=== PATIENT | male | born 1935 | race Caucasian/White ===

== ENCOUNTER → 2020-03-20 08:55 | Outpatient (BNVA) | payer MEDICARE, SELFPAY | PROVIDERS: Family Provider Physician Assistant Medical; PCP Physician Assistant Medical; Visit Provider Urology | DX: N40.1 Benign prostatic hyperplasia with lower urinary tract symptoms (principal); N39.41 Urge incontinence; N32.3 Diverticulum of bladder | CPT/HCPCS: 81003 ==

== ENCOUNTER 2022-08-19 12:15 | Inpatient (IN) | payer MEDICARE, SELFPAY ==
[2022-08-19] VITALS (18 sets, daily range): BP systolic 98–159; BP diastolic 52–70; PULSE 68–115; RESP 16–23; TEMP 36.7–36.8; O2SAT 92–99
--- NOTE | 2022-08-19 12:23 | CT_ITS ---
WS: [id number] CT HEAD NONCONTRAST HISTORY: AMS TECHNIQUE: Contiguous axial imaging performed through the brain in 2.5 mm imaging. Bone and soft tiss ue windows. Sagittal and coronal reformats reviewed. All CT scans at [facility] use at least one of these dose optimization techniques: automated exposure control; mA and/or kV adjustment per pa tient size (includes targeted exams where dose is matched to clinical indication); or iterative recon struction. DLP: 1228.58 mGy.cm COMPARISON: None available. No acute intracranial hemorrhage, midline shift or mass effect. Moderate atrophy, symmetric with no midline shift. Small vessel ischemic disease. There is also moder ate cerebellar atrophy. Small lacunar infarcts in the external capsules. Ventricles: Normal size with no hydrocephalus. No inferior displacement of cerebellar tonsils. Paranasal sinuses: As visualized are clear. Mastoid air cells: Well pneumatized. Calvarium and scalp: Skull is intact with no soft tissue edema or swelling. CT/CT head wo con* [id number] IMPRESSION: 1. No acute intracranial hemorrhage or edema. 2. Moderate atrophy, cerebrum and cerebellum. 3. Mild small vessel ischemic disease.
--- NOTE | 2022-08-19 12:23 | ECG_ITS ---
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 Measurements Intervals Pillager Rate: 98 P: 17 NM: 145 QRS: -17 QRSD: 102 T: 37 QT: 396 QTc: 506 Interpretive Statements SINUS RHYTHM WITH OCCASIONAL SUPRAVENTRICULAR PREMATURE COMPLEXES POSSIBLE LEFT ATRIAL ENLARGEMENT [-0.1mV P-WAVE IN V1/V2] INFERIOR MYOCARDIAL INFARCTION , PROBABLY OLD [40+ ms Q WAVE AND/OR ST/T ABNORMALITY IN II/aVF] No previous ECG available for comparison Electronically Signed On 08-19-2022 16:31:31 CDT by Niranjan Reynaga M.D. [id number]
[2022-08-19] MEDS: sodium chloride 0.9% 1,000 ML 999 ML IV ×2 (12:45→14:02)
[2022-08-19 13:17] LABS: Basophils # 0.1 10^3/uL (0.0-0.1); Basophils % 0.4 %; Hematocrit 42.1 % (42.0-52.0); Hemoglobin 14.5 g/dL (11.7-16.6); Lymphocytes # 0.2 10^3/uL (0.8-4.8); Lymphocytes % 0.6 %; Mean Corpuscular HGB Conc 34.4 g/dL (30.0-36.0); Mean Corpuscular Hemoglobin 32.4 pg (28.0-34.0); Mean Platelet Volume 11.5 fL (7.4-10.4); Monocytes # 0.7 10^3/uL (0.2-0.9); Monocytes % 2.3 %; Neutrophils # 27.72 10^3/uL (1.8-7.7); Neutrophils % 95.8 %; Nucleated Red Blood Cells % 0 %; Platelet Count 234 10^3/cmm (130-400); Red Blood Count 4.48 10^6/uL (4.1-5.3); Red Cell Distribution Width 12.9 % (12.1-15.1); White Blood Count 28.9 10^3/uL (4.0-10.0)
--- NOTE | 2022-08-19 13:27 | PC.PHAR ---
pt is from [facility]-pts states the pt was just admitted to [facility] last night 08/18/22 states the pt had been in [facility] for a week-medications entered are from the pts mar
[2022-08-19 13:36] LABS: Alanine Aminotransferase 22 U/L (0-41); Albumin Level 3.8 g/dL (3.5-5.2); Alkaline Phosphatase 83 U/L (40-130); Anion Gap 18.2 (5-19); Aspartate Amino Transferase 13 U/L (0-40); Blood Urea Nitrogen 26 mg/dL (8-23); Carbon Dioxide 21 mmol/L (22-29); Chloride 99 mmol/L (98-107); Globulin 2.9 g/dL (1.3-4.6); Glucose 407 mg/dL (65-115); Magnesium 1.8 mg/dL (1.7-2.3); Osmolality Calculated 300 mOsm/kg (285-295); Potassium 4.2 mmol/L (3.5-5.1); Sodium 134 mmol/L (136-145); Total Bilirubin 0.8 mg/dL (0.15-1.2); Total Protein 6.7 g/dL (6.6-8.7)
[2022-08-19 13:40] LABS: Lactic Sepsis W/Reflex 4.4 mmol/L (0.5-2.2)
--- NOTE | 2022-08-19 13:44 | CT_ITS ---
WS: [id number] CT ABDOMEN AND PELVIS NONCONTRAST HISTORY: Abdominal pain, hematuria. TECHNIQUE: Imaging performed through the abdomen and pelvis. Coronal and sagittal reformats are submi tted. All CT scans at [facility] use at least one of these dose optimization techniques: auto mated exposure control; mA and/or kV adjustment per patient size (includes targeted exams where dose is matched to clinical indication); or iterative reconstruction. DLP: 783.97 mGy.cm COMPARISON: 01/31/2018 Lower thorax: Hyperexpanded lung bases. Mild reticular thickening no mass or pneumonia. Normal size h eart. No pericardial effusion. Liver: Normal size liver. No mass or bile duct dilatation. Gallbladder: Prior cholecystectomy. Pancreas: Mild atrophy. Spleen: Normal. Adrenal glands: Normal. No mass. Right kidney: New since the prior study from 2018 is moderate hydroureteronephrosis. The RIGHT ureter is dilated and tortuous to the level of the urinary bladder. No stone or obstructing calcification i dentified. The obstruction is distal near the insertion of the urinary bladder. Nonobstructing calcif ications. Left kidney: Mild hydroureteronephrosis. LEFT ureter is dilated throughout its course to the urinary bladder. New since the prior study. Aorta: Mild atherosclerosis abdominal aorta with no aneurysm. No free fluid, intraperitoneal air or significant lymphadenopathy. GI tract: Stomach is moderately distended with fluid and air. No small bowel obstruction. Sigmoid div erticular disease. No GI tract obstruction. Abdominal wall: Negative. No hernia. Pelvis: Urinary bladder is markedly distended. Bladder extends over length of 16.5 cm. There is air i n the urinary bladder which may be due to a cystitis or air from the Tang catheter placement. Bilate ral bladder diverticula. Prostate gland is enlarged. Tang catheter has been placed. Abnormal positio herlinda of the Tang catheter with the Tang catheter balloon distended at the junction between the peni le and prostatic urethra. Tang catheter needs to be readjusted. Osseous structures: Moderate spondylitic change in the spine. CT/CT abdomen pelvis wo con [id number] IMPRESSION: 1. Bilateral significant hydroureteronephrosis, RIGHT greater than LEFT. No ob structing ureteral calcifications. Favor the hydronephrosis and hydroureter is secondary to an overly distended urinary bladder. Recommend repositioning of th e Tang catheter to decompress the bladder. 2. Abnormal positioning of the Tang catheter. The Tang catheter balloon is d istended at the junction of the penile and prostatic urethra. Please deflate th e Tang balloon and reposition into the urinary bladder for decompression. 3. Bladder diverticula and diffuse bladder wall thickening. Probably due to lo ng-standing outlet obstruction. There is air in the urinary bladder which may b e due to cystitis or the attempted Tang catheter placement. 4. Prostate gland enlargement. 5. Prior cholecystectomy.
--- NOTE | 2022-08-19 13:44 | W.ED.GENADLT ---
HPI - General Adult General: Chief complaint: General Medical Stated complaint: BLOOD SUGAR/ELEV HEART RATE Time Seen by Provider: 08/19/22 12:21 Source: patient Mode of arrival: ambulatory History of Present Illness: 87-year-old male presents emergency room via EMS he was discharged from [facility] in [place] to shelter yesterday. We did get his old records his white count at discharge was 6.5 and he was relatively stable from reading through his discharge summary. Later his did arrive in the emergency room and she confirmed his that he did seem to be doing well when she came and seen him today he was doing very poorly staff recognized that he was having significant difficulty he was poorly responsive and had deteriorated rapidly overnight and he was brought in by ambulance on arrival here he is tachycardic he is awake and able to answer some questions initially his blood pressure was stable. Relieving factors: none Exacerbating factors: none Associated symptoms: Reports nausea; Deny chest pain, confusion, cough, diaphoresis, decreased appetite, dyspnea, fevers/chills, headache(s), malaise, rash, palpitations, seizures, short of breath, syncope, vomiting or weakness Review of Systems Const: Reports: fever(s) and chills; Denies: malaise or diaphoresis ENMT: Denies: throat pain, ear or mastoid pain, nasal discharge or nasal congestion Card: Denies: chest pain, palpitations or syncope Resp: Denies: dyspnea GI: Reports: abdominal pain and nausea; Denies: vomiting : Reports: hematuria; Denies: flank pain, dysuria, urinary frequency or urinary urgency Skin/Breast: Denies: rash or pruritus Neuro: Denies: headache(s) or confusion PFSH ED PFSH: Medical History 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 CAD (coronary artery disease) Dementia Hx of hydronephrosis Surgical History Hx of appendectomy Hx of cholecystectomy Hx of heart artery stent Hx of tonsillectomy Family History Father , AT AGE 88 COMPLICATIONS OF CVA Otlvzq-oz-etwhkofgm syndrome Mother , AT 92 LUNG CANCER Cancer Brother Diabetes Social History Smoking and tobacco status: former smoker Alcohol intake: unknown Adopted: No Caregiver/support person: No Lives independently: No Household members: spouse Marital status: Current occupational status: retired Physical Exam HENMT: COMMON NORMALS: normocephalic, atraumatic, external ears normal, Normal nasal mucous membranes and turbinates present, moist oral mucous membranes and oropharynx normal HEAD & SCALP: normocephalic and atraumatic NOSE: Normal nasal mucous membranes and turbinates present EXTERNAL EAR: Yes external ears normal Eye: COMMON NORMALS: Equal, round and reactive pupils present, EOMs intact bilaterally, conjunctivae normal and no scleral icterus CONJUNCTIVA: Yes conjunctivae normal PUPIL: Yes Equal, round and reactive pupils present Neck/C-Spine: COMMON NORMALS: full ROM, no lymphadenopathy, supple and no JVD Lymph: LYMPHATIC: no lymphadenopathy noted and no lymphedema noted Resp: COMMON NORMALS: normal respiratory effort, No retractions, No use of accessory muscles and clear to auscultation bilaterally AUSCULTATION: clear to auscultation bilaterally Cardio: COMMON NORMALS: no JVD, regular rate, regular rhythm and No murmurs present (Cardio) RATE: regular rate RHYTHM: regular rhythm GI: COMMON NORMALS: No hepatosplenomegaly present AUSCULTATION: Yes normoactive bowel sounds PALPATION: Yes Tenderness to palpation present (GI) (Suprapubic), No Guarding due to palpation present (GI) and Yes No hepatosplenomegaly present : COMMON NORMALS: Yes no CVA tenderness BLADDER/KIDNEY EXAM: Yes no CVA tenderness Back/Pelvis: COMMON NORMALS: no CVA tenderness Extremity: COMMON NORMALS: normal to inspection, capillary refill normal, no clubbing, cyanosis or edema, no calf tenderness and no pedal edema Skin: COMMON NORMALS: no rashes or lesions noted GENERAL SKIN EXAM: no rashes or lesions noted Course Vital Signs: Vital signs: Vital Signs Temperature 98.5 F 08/20/22 04:00 Pulse Rate 81 08/20/22 06:07 Respiratory Rate 21 H 08/20/22 04:00 Blood Pressure 96/54 08/20/22 04:00 Pulse Oximetry 96 08/20/22 06:07 Oxygen Delivery Me thod 08/20/22 06:07 Oxygen Flow Rate 3 08/20/22 06:07 MDM - General Adult Medical Decision Making Patient meets the criteria for severe sepsis based on his vital signs and laboratory studies he was started on meropenem due to his recent hospitalization and Tang catheter is in place. Is given a fluid bolus and lactate series ordered. He has no signs of pneumonia or soft tissue infection cultures were also done prior to antibiotics. Reviewed previous hospitalization records we were able to get the culture however this did not show any resistant bacteria. I still think meropenem is the best option for him at this point given his recent hospitalization and antibiotics. Blood pressures been stable tachycardia improved after fluid bolus. Patient will be admitted to the ICU. Initial review of the CT and noted that the Tang catheter was lodged in the prostate and the bladder was significantly distended. Nursing advanced the Tang and there is over 1200 out from the bladder very shortly after the catheter being repositioned properly. Radiology confirmed wet read. Medical Records I reviewed the patient's medical records. Lab Data I reviewed the patient's lab results. 08/19/22 13:00 08/19/22 13:[address] 08/19/22 12:23 IMPRESSION: 1. No acute intracranial hemorrhage or edema. 2. Moderate atrophy, cerebrum and cerebellum. 3. Mild small vessel ischemic disease. Abdomen/Pelvis CT 08/19/22 13:44 IMPRESSION: 1. Bilateral significant hydroureteronephrosis, RIGHT greater than LEFT. No obstructing ureteral calcifications. Favor the hydronephrosis and hydroureter is secondary to an overly distended urinary bladder. Recommend repositioning of the Tang catheter to decompress the bladder. 2. Abnormal positioning of the Tang catheter. The Tang catheter balloon is distended at the junction of the penile and prostatic urethra. Please deflate the Tang balloon and reposition into the urinary bladder for decompression. 3. Bladder diverticula and diffuse bladder wall thickening. Probably due to long-standing outlet obstruction. There is air in the urinary bladder which may be due to cystitis or the attempted Tang catheter placement. 4. Prostate gland enlargement. 5. Prior cholecystectomy. Chest X-Ray 08/19/22 18:49 IMPRESSION: No acute findings Laboratory Results WBC 28.9 10^3/uL (4.0-10.0) H 08/19/22 13:00 RBC 4.48 10^6/uL (4.1-5.3) 08/19/22 13:00 Hgb 14.5 g/dL (11.7-16.6) 08/19/22 13:00 Hct 42.1 % (42.0-52.0) 08/19/22 13:00 MCV 94.0 fl (80-94) 08/19/22 13:00 MCH 32.4 pg (28.0-34.0) 08/19/22 13:00 MCHC 34.4 g/dL (30.0-36.0) 08/19/22 13:00 RDW 12.9 % (12.1-15.1) 08/19/22 13:00 Plt Count 234 10^3/cmm (130-400) 08/19/22 13:00 MPV 11.5 fL (7.4-10.4) H 08/19/22 13:00 Neut % (Auto) 95.8 % 08/19/22 13:00 Lymph % (Auto) 0.6 % 08/19/22 13:00 Evans % (Auto) 2.3 % 08/19/22 13:00 Eos % (Auto) 0.0 % 08/19/22 13:00 Baso % (Auto) 0.4 % 08/19/22 13:00 Neut # (Auto) 27.72 10^3/uL (1.8-7.7) H 08/19/22 13:00 Lymph # (Auto) 0.2 10^3/uL (0.8-4.8) L 08/19/22 13:00 Evans # (Auto) 0.7 10^3/uL (0.2-0.9) 08/19/22 13:00 Eos # (Auto) 0.0 10^3/uL (0.0-0.8) 08/19/22 13:00 Baso # (Auto) 0.1 10^3/uL (0.0-0.1) 08/19/22 13:00 Nucleated RBC % (auto) 0 % 08/19/22 13:00 Nucleated RBCs # 0.0 /100WBC 08/19/22 13:00 Sodium 134 mmol/L (136-145) L 08/19/22 13:00 Potassium 4.2 mmol/L (3.5-5.1) 08/19/22 13:00 Chloride 99 mmol/L (98-107) 08/19/22 13:00 Carbon Dioxide 21 mmol/L (22-29) L 08/19/22 13:00 Anion Gap 18.2 (5-19) 08/19/22 13:00 BUN 26 mg/dL (8-23) H 08/19/22 13:00 Creatinine 1.2 mg/dL (0.7-1.2) 08/19/22 13:00 GFR Calculation Not Reportable 08/19/22 13:00 Glucose 407 mg/dL (65-115) H 08/19/22 13:00 Calculated Osmolality 300 mOsm/kg (285-295) H 08/19/22 13:00 Lactic Acid 4.4 mmol/L (0.5-2.2) H* 08/19/22 13:00 Lactic Acid (Sepsis) 2.9 mmol/L (0.5-2.2) H 08/19/22 16:15 Calcium 9.0 mg/dL (8.5-10.5) 08/19/22 13:00 Magnesium 1.8 mg/dL (1.7-2.3) 08/19/22 13:00 Total Bilirubin 0.8 mg/dL (0.15-1.2) 08/19/22 13:00 AST 13 U/L (0-40) 08/19/22 13:00 ALT 22 U/L (0-41) 08/19/22 13:00 Alkaline Phosphatase 83 U/L (40-130) 08/19/22 13:00 Total Protein 6.7 g/dL (6.6-8.7) 08/19/22 13:00 Albumin 3.8 g/dL (3.5-5.2) 08/19/22 13:00 Globulin 2.9 g/dL (1.3-4.6) 08/19/22 13:00 TSH 3.11 uIU/mL (0.27-4.20) 08/19/22 13:00 Urine Color Red (Yellow) 08/19/22 13:18 Urine Appearance Cloudy (CLEAR) A 08/19/22 13:18 Urine pH 5 (5-7) 08/19/22 13:18 Ur Specific Mead 1.015 (1.005-1.030) 08/19/22 13:18 Urine Protein 2+ (Negative) H 08/19/22 13:18 Urine Glucose (UA) 4+ (Normal) H 08/19/22 13:18 Urine Ketones Negative (Negative) 08/19/22 13:18 Urine Blood 3+ (Negative) H 08/19/22 13:18 Urine Nitrate Not Reportable 08/19/22 13:18 Urine Bilirubin Not Reportable 08/19/22 13:18 Urine Urobilinogen Not Reportable 08/19/22 13:18 Ur Leukocyte Esterase 2+ (Negative) H 08/19/22 13:18 Urine RBC >100 /hpf (0-2) H 08/19/22 13:18 Urine WBC 10-15 /hpf (0-5) H 08/19/22 13:18 Ur Squamous Epith Cells Rare /hpf (0-5) 08/19/22 13:18 Amorphous Sediment Not Reportable 08/19/22 13:18 Urine Bacteria 1+ /hpf (NONE) H 08/19/22 13:18 Serum Ketones Negative (Negative) 08/19/22 12:26 Discharge Plan Discharge Patient Disposition: Admitted As Inpatient Admit Provider: Leslie Matias Clinical Impression: Sepsis, UTI (urinary tract infection), Urinary obstruction, Lethargy, Bladder diverticulum Condition: Stable Coding Level of Care Code 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
[2022-08-19 13:56] LABS: Add Urine Microscopic? YES; Blood Urine 3+ (Negative); Glucose Urine UA 4+ (Normal); Ketones Urine Negative (Negative); Leukocyte Esterase Urine 2+ (Negative); Protein Urine 2+ (Negative); Specific Gravity, Urine 1.015 (1.005-1.030); Urine Appearance Cloudy (CLEAR); Urine Color Red (Yellow); pH Urine 5 (5-7)
[2022-08-19 13:59] LABS: Add Urine Culture? Yes; Bacteria Urine 1+ /hpf; RBC Urine >100 /hpf (0-2); Squamous Epithelial Cell Urine RARE /hpf (0-5)
[2022-08-19] MEDS: meropenem 1,000 MG in sodium chloride 0.9% (plus) 50 ML 100 MG IV ×2 (14:01→21:55)
[2022-08-19 14:07] LABS: Ketone (Acetest) Serum Negative (Negative)
[2022-08-19 14:56] LABS: Reflex Lactate Order REFLEX LACTIC ORDERD
[2022-08-19 16:52] LABS: Lactic Acid level (Lactate) 2.9 mmol/L (0.5-2.2)
[2022-08-19] MEDS: sodium chloride 0.9% 1,000 ML 100 ML IV (17:16)
--- NOTE | 2022-08-19 17:24 | PM.HP ---
Providers/Chief Complaint Admitting Physician: Leslie Matias MD Primary Care Provider: Roberto Carlos Albarran Chief Complaint: BLOOD SUGAR/ELEV HEART RATE History of Present Illness Eris Nahed is a 87 year old male with a past medical history of diabetes mellitus, hypertension, who was recently admitted at [facility] for urinary tract infection. I am uncertain as to what antibiotic he received or what the culture results showed at this time. Per his symptoms at that time had been increasing lethargy to the point that patient had taken a fall at home. He is intermittently confused. His is at bedside and states that patient sleeps a lot at home . He was discharged to [facility] just last night. Today at the assisted patient was found on the floor, not known if he passed out versus took a mechanical fall. He was sent back into the emergency room. CT of his head was performed which did not show any signs of intracranial hemorrhage or edema. Mild small vessel ischemic changes were seen. His Tang catheter was not draining any urine. CT abdomen showed bilateral significant hydroureteronephrosis right greater than left without any obstructing calcifications. Hydronephrosis and hydroureter were likely related to a distended urinary bladder. Tip of the Tang catheter was noted to be distended in the junction of penile and prostatic urethra. It was repositioned in the emergency room and is draining well now. Prostate gland enlargement was seen.. Notable lab abnormalities today are leukocytosis of 24,000, lactate of 4.4, positive UA and hyperglycemia. At this time patient is lethargic, however able to open his eyes and wake up to calling name. Correctly tells me his name, date of and that is the lady at the bedside is his . Correctly identifies her name. Review of Systems General: Reports: ROS unobtainable due to medical condition Medications/Allergies Home Medications Medication Instructions Recorded Confirmed Last Taken Type L.acidophil-L.casei-B.bifid-B.longum-FOS 1 cap PO DAILY while on antibiotics 08/19/22 08/19/22 Unknown History 2 billion cell-50 mg capsule (Probiotic Blend) aspirin 81 mg tablet,delayed 81 mg PO DAILY 08/19/22 08/19/22 Unknown History release bisacodyl 10 mg rectal suppository 10 mg MT DAILY PRN Constipation 08/19/22 08/19/22 Unknown History (Dulcolax (bisacodyl)) citalopram 10 mg tablet (Celexa) 10 mg PO DAILY 08/19/22 08/19/22 Unknown History diclofenac sodium 75 mg 75 mg PO BID 08/19/22 08/19/22 Unknown History tablet,delayed release famotidine 20 mg tablet 20 mg PO BID 08/19/22 08/19/22 Unknown History glipizide 10 mg tablet, extended 10 mg PO DAILY 08/19/22 08/19/22 Unknown History release 24 hr lisinopril 10 mg tablet 10 mg PO DAILY 08/19/22 08/19/22 Unknown History magnesium hydroxide 400 mg/5 mL 30 ml PO DAILY PRN Constipation 08/19/22 08/19/22 Unknown History oral suspension (Milk of Magnesia) metformin 750 mg tablet,extended 1,500 mg PO QAM 08/19/22 08/19/22 Unknown History release 24 hr ondansetron HCl 4 mg tablet 4 mg PO Q4H PRN Nausea 08/19/22 08/19/22 Unknown History sodium phosphates 19 gram-7 118 ml MT DAILY PRN Constipation 08/19/22 08/19/22 Unknown History gram/118 mL enema (Fleet Enema) tamsulosin 0.4 mg capsule 0.4 mg PO DAILY 08/19/22 08/19/22 Unknown History Allergies Allergy/AdvReac Type Severity Reaction Status Date / Time donepezil [From Aricept] Allergy Unknown Unknown Verified 08/19/22 13:22 triamcinolone Allergy Unknown Unknown Verified 08/19/22 13:22 simvastatin AdvReac Unknown ADR-Cramping Verified 08/19/22 13:22 of the Muscles PFSH Acute PFSH: Medical History 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 CAD (coronary artery disease) Dementia Hx of hydronephrosis Surgical History Hx of appendectomy Hx of cholecystectomy Hx of heart artery stent Hx of tonsillectomy Family History Father , AT AGE 88 COMPLICATIONS OF CVA Oquaet-ui-nmnqhhnwh syndrome Mother , AT 92 LUNG CANCER Cancer Brother Diabetes Social History Smoking and tobacco status: former smoker Alcohol intake: unknown Adopted: No Caregiver/support person: No Lives independently: No Household members: spouse Marital status: Current occupational status: retired Vitals/I&O/Wt Last Vital Signs Temp 98.1 F 08/19/22 12:22 Pulse 106 H 08/19/22 16:58 Resp 18 08/19/22 16:58 BP 130/56 08/19/22 16:58 Pulse Ox 94 08/19/22 16:58 O2 Del Method 08/19/22 12:22 O2 Flow Rate 3 08/19/22 12:47 08/19/22 08/19/22 08/19/22 06:59 14:59 22:59 Intake Total 1000 / 1000 Balance 1000 / 1000 Weight last 48 hrs Weight 86.183 kg Physical Exam Narrative: General: No acute distress, AO x3 HEENT: PERRLA, pupils bilaterally equal and reactive, pallors not present Chest: Normal vesicular breath sounds, no added sounds, equal good air entry bilaterally CVS: S1-S2 regular, no murmurs, no tachycardia, no gallops, no rubs Abdomen: Soft, nontender, no organomegaly, bowel sounds present Neuro: No focal deficits, no facial deformity, AO x3, power 5/5 in all limbs Data 08/19/22 13:00 08/19/22 13:00 Micro: Microbiology 08/19/22 12:55 Blood Culture - Preliminary Blood SPECIMEN COLLECTED 08/19/22 13:00 Blood Culture - Preliminary Blood SPECIMEN COLLECTED A&P Assessment and plan (1) Sepsis: (2) UTI (urinary tract infection): (3) Urinary obstruction: (4) Lethargy: Plan 87-year-old male recently discharged from [facility] after being treated for acute cystitis, presented to the emergency room today sent from the assisted after being found down on the floor. He is known to have a bladder diverticulum and BPH. He had a Tang in place which was displaced. CT of the abdomen and pelvis showed that this Tang was misplaced, it has been repositioned in the emergency room and is draining urine now. No overt bleeding noted. Patient meets sepsis criteria by way of elevated white blood cell count, elevated lactate, tachycardia and source of infection by way of a UTI. Urine culture blood cultures have been taken prior to starting antibiotics. Empirically placed on meropenem 1 g IV every 8 hours while awaiting culture data. Sepsis bolus given in the emergency room, to continue fluids at 100 mm/h. Patient is currently lethargic, which is not his baseline per his at bedside. He is able to wake up and answer all orientation questions appropriately, however unable to hold a conversation. Lethargy may be attributable to sepsis. Treat with IV fluids IV antibiotics await cultures and monitor closely. Hold lisinopril for now. Blood sugar noted to be grossly elevated more than 400. Serum ketones are negative. We will start patient on high-dose insulin sliding scale. At home he typically takes glipizide. Anion gap currently at 18.2. Denies any current chest pain dyspnea or palpitations. We will obtain chest x-ray to evaluate for any underlying pneumonia. Patient requiring 3 L/min supplemental O2. CT of his head is without any intracranial acute events. White matter changes were noted. Attestations Medical Necessity Statement*: Greater than 2 midnight admission is anticipated for management of sepsis, IV fluids, IV antibiotics, management of hyperglycemia. Coding Level of Care Code Acute Code for [facility] Diagnoses Sepsis A41.9 UTI (urinary tract infection) N39.0 Urinary obstruction N13.9 Lethargy R53.83
[2022-08-19 18:44] LABS: Glucose Point of Care 431 mg/dL (70-110)
--- NOTE | 2022-08-19 18:49 | XRR_ITS ---
PROCEDURE INFORMATION: Exam: XR Chest Exam date and time: 08/19/2022 5:59 PM Age: 87 years old Clinical indication: Other: Pneumonia; Additional info: Evalaute for pneumonia TECHNIQUE: Imaging protocol: Radiologic exam of the chest. Views: 1 view. COMPARISON: CT abdomen pelvis con [id number] 08/19/2022 2:24 PM FINDINGS: Lungs: There is some chronic peripheral fibrosis or atelectasis in both lungs. No acute infiltration or effusion. Pleural spaces: Unremarkable. No pleural effusion. No pneumothorax. Heart/Mediastinum: Unremarkable. No cardiomegaly. Bones/joints: Unremarkable. XR/XR chest 1V portable [id number] IMPRESSION: No acute findings
[2022-08-19 19:25] LABS: Thyroid Stimulating Hormone 3.11 uIU/mL (0.27-4.20)
[2022-08-19 20:23] LABS: Glucose Point of Care 368 mg/dL (70-110)
[2022-08-19] MEDS: enoxaparin 40 mg/0.4 mL Syringe SUBCUT (20:28)
[2022-08-19] MEDS: insulin lispro 100 unit/1 mL SUBCUT (20:29)
[2022-08-19 23:47] LABS: Adenovirus Not Detected (NOT DETECT); Chlamydia Pneumoniae Not Detected (NOT DETECT); Coronavirus 229E,HKU1,NL63,OC4 Not Detected (NOT DETECT); Human Metapneumovirus Not Detected (NOT DETECT); Human Rhinovirus/Enterovirus Not Detected (NOT DETECT); Influenza A Not Detected (NOT DETECT); Influenza A H1 Not Detected (NOT DETECT); Influenza A H1-2009 Not Detected (NOT DETECT); Influenza A H3 Not Detected (NOT DETECT); Influenza B Not Detected (NOT DETECT); Mycoplasma Pneumoniae Not Detected (NOT DETECT); Parainfluenza Virus Type 1 Not Detected (NOT DETECT); Parainfluenza Virus Type 2 Not Detected (NOT DETECT); Parainfluenza Virus Type 3 Not Detected (NOT DETECT); Parainfluenza Virus Type 4 Not Detected (NOT DETECT); Respiratory Syncytial Virus A Not Detected (NOT DETECT); Respiratory Syncytial Virus B Not Detected (NOT DETECT); SARS-COV-2 Not Detected (NOT DETECT)
[2022-08-20] VITALS (28 sets, daily range): BP systolic 96–136; BP diastolic 49–71; PULSE 63–81; RESP 18–25; TEMP 36.2–36.9; O2SAT 87–100
[2022-08-20] MEDS: sodium chloride 0.9% 1,000 ML 100 ML IV ×3 (03:18→23:06)
[2022-08-20 04:23] LABS: Basophils # 0.1 10^3/uL (0.0-0.1); Basophils % 0.4 %; Eosinophils % 0.1 %; Hematocrit 34.9 % (42.0-52.0); Hemoglobin 11.8 g/dL (11.7-16.6); Lymphocytes # 1.7 10^3/uL (0.8-4.8); Lymphocytes % 6.2 %; Mean Corpuscular HGB Conc 33.8 g/dL (30.0-36.0); Mean Corpuscular Hemoglobin 32.3 pg (28.0-34.0); Mean Corpuscular Volume 95.6 fl (80-94); Mean Platelet Volume 11.4 fL (7.4-10.4); Monocytes # 1.2 10^3/uL (0.2-0.9); Monocytes % 4.5 %; Neutrophils # 23.73 10^3/uL (1.8-7.7); Nucleated Red Blood Cells % 0 %; Platelet Count 209 10^3/cmm (130-400); Red Blood Count 3.65 10^6/uL (4.1-5.3); Red Cell Distribution Width 13.2 % (12.1-15.1); White Blood Count 26.9 10^3/uL (4.0-10.0)
[2022-08-20 04:41] LABS: Lactic Sepsis W/Reflex 1.6 mmol/L (0.5-2.2)
[2022-08-20 04:49] LABS: Alanine Aminotransferase 17 U/L (0-41); Albumin Level 3.1 g/dL (3.5-5.2); Alkaline Phosphatase 62 U/L (40-130); Anion Gap 12.3 (5-19); Aspartate Amino Transferase 10 U/L (0-40); Blood Urea Nitrogen 23 mg/dL (8-23); Calcium 8.3 mg/dL (8.5-10.5); Carbon Dioxide 26 mmol/L (22-29); Chloride 105 mmol/L (98-107); Globulin 2.3 g/dL (1.3-4.6); Glucose 157 mg/dL (65-115); Magnesium 1.9 mg/dL (1.7-2.3); NT Pro B Type Natriuretic Pept 895 pg/mL (0-450); Osmolality Calculated 295 mOsm/kg (285-295); Potassium 4.3 mmol/L (3.5-5.1); Sodium 139 mmol/L (136-145); Total Bilirubin 0.8 mg/dL (0.15-1.2); Total Protein 5.4 g/dL (6.6-8.7)
[2022-08-20] MEDS: meropenem 1,000 MG in sodium chloride 0.9% (plus) 50 ML 100 MG IV ×3 (05:04→22:33)
[2022-08-20 07:09] LABS: Glucose Point of Care 175 mg/dL (70-110)
[2022-08-20] MEDS: citalopram 20 mg Tablet 10 MG PO (08:31)
[2022-08-20] MEDS: insulin lispro 100 unit/1 mL SUBCUT ×3 (08:31→20:36)
[2022-08-20] MEDS: pantoprazole DR 40 mg Tablet PO (08:31)
[2022-08-20] MEDS: tamsulosin 0.4 mg Capsule PO (08:31)
[2022-08-20] MEDS: aspirin 81 mg EC Tablet PO (08:31)
[2022-08-20 11:35] LABS: Glucose Point of Care 206 mg/dL (70-110)
--- NOTE | 2022-08-20 16:14 | PM.PN ---
Subjective Subjective: Remains somewhat disoriented to place and time this morning. States that he has not in any pain. Says that he is thirsty, he has been drinking some. Nursing denies any concerns at this time. Reports that his pressures have been stable overnight. Vitals/I&O/Wt Last Vital Signs Temp 97.1 F L 08/20/22 12:00 Pulse 64 08/20/22 14:44 Resp 19 H 08/20/22 12:00 BP 136/66 08/20/22 12:00 Pulse Ox 98 08/20/22 12:00 O2 Del Method 08/20/22 12:00 O2 Flow Rate 3 08/20/22 12:00 08/20/22 08/20/22 08/20/22 06:59 14:59 22:59 Intake Total 1160 / 3260 1795 / 1795 Output Total 375 / 1675 Balance 785 / 1585 1795 / 1795 Weight last 48 hrs Weight 190 lb Physical Exam Narrative: General: Cooperative patient in no apparent distress. Well developed. Alert and oriented to person. HEENT: Normocephalic, Atraumatic. External ears normal. Nasal passages patent without drainage. MMM. Heart: RRR. Resp: LCTA. No respiratory distress, no use of accessory muscles. Abd: Soft, non-tender. Non-distended. Extremities: No edema. Skin: No rash or lesions on exposed areas. Data 08/20/22 03:03 08/20/22 03:03 Micro: Microbiology 08/19/22 12:55 Blood Culture - Preliminary Blood NEGATIVE TO DATE 08/19/22 13:00 Blood Culture - Preliminary Blood NEGATIVE TO DATE A&P Assessment and plan (1) Sepsis: (2) UTI (urinary tract infection): (3) Urinary obstruction: (4) Lethargy: Plan 87-year-old male recently discharged from [facility], admitted for sepsis with UTI source. Continue close ICU monitoring. Vitals are stable at this time. Pressures have been much improved overnight and this morning. Blood and urine cultures are pending. Blood cultures currently negative to date. Currently receiving meropenem and will continue. Plan to de-escalate antibiotics once cultures are available. Continue normal saline. Sodium has improved to normal range. Lactate has trended down to 1.6 from 4.4. Urine output has been good over the last 24 hours. He does have a Tang in place. No overt bleeding noted. Blood sugar noted to be grossly elevated more than 400. Serum ketones are negative. We will start patient on high-dose insulin sliding scale. At home he typically takes glipizide. Anion gap currently at 18.2. Chest x-ray was performed and no acute concerns were noted. CT of his head is without any intracranial acute events. White matter changes were noted. Continue Protonix for GI prophylaxis. Continue sliding scale insulin for diabetes. Code Status: AND IVF: NS@ 100ml/hr DVT PPx: Lovenox GI PPx: Protonix ABx: Meropenem Diet: CC Discharge plan: SNF Attestations Medical Necessity Statement*: Continue inpatient care for IV meropenem, blood cultures, urine cultures, management of sepsis. Diagnoses Sepsis A41.9 UTI (urinary tract infection) N39.0 Urinary obstruction N13.9 Lethargy R53.83
[2022-08-20 17:39] LABS: Glucose Point of Care 120 mg/dL (70-110)
[2022-08-20] MEDS: enoxaparin 40 mg/0.4 mL Syringe SUBCUT (17:54)
--- NOTE | 2022-08-20 18:47 | PC.NURSE ---
Uneventful shift, patient remains pleasantly confused, 3L NC, stable vitals. See charted vitals. Patient updated at bedside by Dr. Martínez. Patient denies pain throughout shift and at this time. Patient resting comfortably, watching TV.
[2022-08-20 20:30] LABS: Glucose Point of Care 205 mg/dL (70-110)
[2022-08-21] VITALS (12 sets, daily range): BP systolic 117–139; BP diastolic 58–71; PULSE 52–87; RESP 12–25; TEMP 36.6–36.8; O2SAT 92–100
[2022-08-21 03:59] LABS: Basophils % 0.3 %; Eosinophils # 0.1 10^3/uL (0.0-0.8); Eosinophils % 0.9 %; Hematocrit 34.2 % (42.0-52.0); Hemoglobin 11.4 g/dL (11.7-16.6); Lymphocytes % 13.3 %; Mean Corpuscular HGB Conc 33.3 g/dL (30.0-36.0); Mean Corpuscular Hemoglobin 32.8 pg (28.0-34.0); Mean Corpuscular Volume 98.3 fl (80-94); Mean Platelet Volume 11.3 fL (7.4-10.4); Monocytes # 0.7 10^3/uL (0.2-0.9); Monocytes % 4.4 %; Neutrophils # 11.99 10^3/uL (1.8-7.7); Neutrophils % 80.4 %; Nucleated Red Blood Cells % 0 %; Platelet Count 199 10^3/cmm (130-400); Red Blood Count 3.48 10^6/uL (4.1-5.3); Red Cell Distribution Width 13.2 % (12.1-15.1); White Blood Count 14.9 10^3/uL (4.0-10.0)
[2022-08-21 04:23] LABS: Alanine Aminotransferase 14 U/L (0-41); Alkaline Phosphatase 52 U/L (40-130); Anion Gap 9.9 (5-19); Aspartate Amino Transferase 10 U/L (0-40); Blood Urea Nitrogen 14 mg/dL (8-23); Calcium 8.2 mg/dL (8.5-10.5); Carbon Dioxide 27 mmol/L (22-29); Chloride 104 mmol/L (98-107); Globulin 2.3 g/dL (1.3-4.6); Glucose 95 mg/dL (65-115); Osmolality Calculated 284 mOsm/kg (285-295); Potassium 3.9 mmol/L (3.5-5.1); Sodium 137 mmol/L (136-145); Total Bilirubin 0.4 mg/dL (0.15-1.2); Total Protein 5.3 g/dL (6.6-8.7)
[2022-08-21] MEDS: meropenem 1,000 MG in sodium chloride 0.9% (plus) 50 ML 100 MG IV ×2 (05:49→16:23)
[2022-08-21 08:49] LABS: Glucose Point of Care 140 mg/dL (70-110)
[2022-08-21] MEDS: aspirin 81 mg EC Tablet PO (08:51)
[2022-08-21] MEDS: citalopram 20 mg Tablet 10 MG PO (08:51)
[2022-08-21] MEDS: tamsulosin 0.4 mg Capsule PO (08:51)
[2022-08-21] MEDS: pantoprazole DR 40 mg Tablet PO (08:51)
[2022-08-21] MEDS: sodium chloride 0.9% 1,000 ML 100 ML IV (08:52)
[2022-08-21 12:26] LABS: Glucose Point of Care 183 mg/dL (70-110)
[2022-08-21] MEDS: insulin lispro 100 unit/1 mL SUBCUT ×3 (12:58→21:30)
--- NOTE | 2022-08-21 14:22 | P.PN_ITS ---
Subjective Subjective: Denies any pain or problems morning. He is sitting up eating. He still remains oriented only to person. His did endorse he has had some longstanding dementia. Vitals/I&O/Wt Last Vital Signs Temp 98.2 F 08/21/22 10:00 Pulse 73 08/21/22 12:00 Resp 14 08/21/22 12:00 BP 133/69 08/21/22 12:00 Pulse Ox 98 08/21/22 12:00 O2 Del Method 08/21/22 12:00 O2 Flow Rate 3 08/21/22 06:00 08/20/22 08/21/22 08/21/22 22:59 06:59 14:59 Intake Total 1444 / 3239 350 / 3589 1576.667 / 1576.667 Output Total 1125 / 1125 550 / 1675 1750 / 1750 Balance 319 / 2114 -200 / 1914 -173.333 / -173.333 Physical Exam Narrative: General: Cooperative patient in no apparent distress. Well developed. Alert and oriented to person. HEENT: Normocephalic, Atraumatic. External ears normal. Nasal passages patent without drainage. MMM. Heart: RRR. Resp: LCTA. No respiratory distress, no use of accessory muscles. Abd: Soft, non-tender. Non-distended. Extremities: No edema. Skin: No rash or lesions on exposed areas. Data 08/21/22 03:32 08/21/22 03:32 Micro: Microbiology 08/19/22 13:18 Urine Culture - Preliminary Urine,Clean Catch Streptococcus species 08/19/22 12:55 Blood Culture - Preliminary Blood NEGATIVE TO DATE 08/19/22 13:00 Blood Culture - Preliminary Blood NEGATIVE TO DATE A&P Assessment and plan (1) Sepsis: (2) UTI (urinary tract infection): (3) Urinary obstruction: (4) Lethargy: Plan 87-year-old male recently discharged from [facility], admitted for sepsis with UTI source. Continue inpatient monitoring. Transfer to floor today. Vitals are stable at this time. Pressures have been much improved overnight and this morning. Blood and urine cultures are pending. Blood cultures positive for Streptococcus species. Currently receiving meropenem and will continue. Plan to de-escalate antibiotics once ID and sensitivities are available. Continue normal saline. WBC is down to 14.9. Urine output has been good over the last 24 hours. Blood sugar noted to be grossly elevated more than 400. Serum ketones are negative. We will start patient on high-dose insulin sliding scale. At home he typically takes glipizide. Anion gap currently at 18.2. Chest x-ray was performed and no acute concerns were noted. CT of his head is without any intracranial acute events. White matter changes were noted. Continue Protonix for GI prophylaxis. Continue sliding scale insulin for diabetes. Code Status: AND IVF: NS@ 100ml/hr DVT PPx: Lovenox GI PPx: Protonix ABx: Meropenem Diet: CC Discharge plan: SNF Attestations Medical Necessity Statement*: Continue inpatient care for IV meropenem, blood cultures, urine cultures, management of sepsis. Coding Level of Care Code Acute Code for [facility] Fwd Moderate MDM includes number and complexity of problems actively addressed during encounter, amount and/or complexity of data reviewed/ordered and described risk of complication, morbidity or mortality of management as documented Diagnoses Sepsis A41.9 UTI (urinary tract infection) N39.0 Urinary obstruction N13.9 Lethargy R53.83
[2022-08-21 16:44] LABS: Glucose Point of Care 172 mg/dL (70-110)
[2022-08-21 20:43] LABS: Glucose Point of Care 141 mg/dL (70-110)
[2022-08-21] MEDS: enoxaparin 40 mg/0.4 mL Syringe SUBCUT (21:30)
[2022-08-22] VITALS (7 sets, daily range): BP systolic 124–164; BP diastolic 58–76; PULSE 60–81; RESP 16–18; TEMP 36.2–37.1; O2SAT 93–95
[2022-08-22] MEDS: meropenem 1,000 MG in sodium chloride 0.9% (plus) 50 ML 100 MG IV ×3 (00:54→15:22)
[2022-08-22 04:01] LABS: Hematocrit 36.5 % (42.0-52.0); Hemoglobin 12.2 g/dL (11.7-16.6); Mean Corpuscular HGB Conc 33.4 g/dL (30.0-36.0); Mean Corpuscular Hemoglobin 32.2 pg (28.0-34.0); Mean Corpuscular Volume 96.3 fl (80-94); Mean Platelet Volume 11.3 fL (7.4-10.4); Platelet Count 194 10^3/cmm (130-400); Red Blood Count 3.79 10^6/uL (4.1-5.3); Red Cell Distribution Width 12.9 % (12.1-15.1); White Blood Count 9.1 10^3/uL (4.0-10.0)
[2022-08-22 04:23] LABS: Alanine Aminotransferase 13 U/L (0-41); Albumin Level 3.2 g/dL (3.5-5.2); Alkaline Phosphatase 57 U/L (40-130); Anion Gap 12.9 (5-19); Aspartate Amino Transferase 10 U/L (0-40); Blood Urea Nitrogen 13 mg/dL (8-23); Calcium 8.9 mg/dL (8.5-10.5); Carbon Dioxide 26 mmol/L (22-29); Chloride 99 mmol/L (98-107); Globulin 2.6 g/dL (1.3-4.6); Glucose 151 mg/dL (65-115); Osmolality Calculated 281 mOsm/kg (285-295); Potassium 3.9 mmol/L (3.5-5.1); Sodium 134 mmol/L (136-145); Total Bilirubin 0.4 mg/dL (0.15-1.2); Total Protein 5.8 g/dL (6.6-8.7)
[2022-08-22 06:39] LABS: Glucose Point of Care 143 mg/dL (70-110)
[2022-08-22] MEDS: pantoprazole DR 40 mg Tablet PO (07:42)
[2022-08-22] MEDS: citalopram 20 mg Tablet 10 MG PO (07:42)
[2022-08-22] MEDS: aspirin 81 mg EC Tablet PO (07:42)
[2022-08-22] MEDS: tamsulosin 0.4 mg Capsule PO (07:42)
[2022-08-22] MEDS: insulin lispro 100 unit/1 mL SUBCUT ×4 (07:43→21:50)
--- NOTE | 2022-08-22 09:56 | PC.SOCIAL ---
Imm update Imm updated with patient at bedside. Copy of page 2 provided. Patient verbalized understanding. Copy in chart initialed, dated and timed.
[2022-08-22 12:07] LABS: Glucose Point of Care 206 mg/dL (70-110)
[2022-08-22 17:08] LABS: Glucose Point of Care 205 mg/dL (70-110)
[2022-08-22] MEDS: enoxaparin 40 mg/0.4 mL Syringe SUBCUT (17:34)
--- NOTE | 2022-08-22 18:02 | PM.PN ---
Subjective Subjective: Feels better today. Seems more alert. Denies pain. Is eating and drinking well. Vitals/I&O/Wt Last Vital Signs Temp 97.2 F L 08/22/22 16:00 Pulse 69 08/22/22 16:00 Resp 17 08/22/22 16:00 BP 134/68 08/22/22 16:00 Pulse Ox 95 08/22/22 16:00 O2 Del Method 08/22/22 08:00 O2 Flow Rate 3 08/21/22 19:26 08/22/22 08/22/22 08/22/22 06:59 14:59 22:59 Intake Total 50 / 3392.667 410 / 410 Output Total 2450 / 5350 850 / 850 850 / 1700 Balance -2400 / -1957.333 -440 / -440 -850 / -1290 Physical Exam Narrative: General: Cooperative patient in no apparent distress. Well developed. Alert and oriented to person. HEENT: Normocephalic, Atraumatic. External ears normal. Nasal passages patent without drainage. MMM. Heart: RRR. Resp: LCTA. No respiratory distress, no use of accessory muscles. Abd: Soft, non-tender. Non-distended. Extremities: No edema. Skin: No rash or lesions on exposed areas. Data 08/22/22 03:39 08/22/22 03:39 Micro: Microbiology 08/19/22 13:18 Urine Culture - Final Urine,Clean Catch Enterococcus faecalis A&P Assessment and plan (1) Sepsis: (2) UTI (urinary tract infection): (3) Urinary obstruction: (4) Lethargy: Plan 87-year-old male recently discharged from [facility], admitted for sepsis with UTI source. Continue inpatient monitoring. Vitals remain stable. He appears more alert and interactive. Blood cultures are negative to date. Urine culture shows E. faecalis pansensitive. Stop meropenem. Start Augmentin per susceptibilities. Stop fluids as he is eating and drinking well. WBC improved. Urine output has been good over the last 24 hours. Blood sugars are improved. Chest x-ray was performed and no acute concerns were noted. CT of his head is without any intracranial acute events. White matter changes were noted. Continue Protonix for GI prophylaxis. Continue sliding scale insulin for diabetes. Code Status: AND IVF: none DVT PPx: Lovenox GI PPx: Protonix ABx: Augmentin Diet: CC Discharge plan: SNF Attestations Medical Necessity Statement*: Continue inpatient care for Antibiotics, blood cultures, urine cultures, management of sepsis, SNF placement . Coding Level of Care Code Acute Code for Chg Fwd Moderate MDM includes number and complexity of problems actively addressed during encounter, amount and/or complexity of data reviewed/ordered and described risk of complication, morbidity or mortality of management as documented Diagnoses Sepsis A41.9 UTI (urinary tract infection) N39.0 Urinary obstruction N13.9 Lethargy R53.83
[2022-08-22 20:12] LABS: Glucose Point of Care 216 mg/dL (70-110)
[2022-08-23] VITALS (9 sets, daily range): BP systolic 138–177; BP diastolic 58–83; PULSE 52–73; RESP 16–18; TEMP 36.3–37.1; O2SAT 93–97
[2022-08-23 06:28] LABS: Glucose Point of Care 171 mg/dL (70-110)
[2022-08-23] MEDS: citalopram 20 mg Tablet 10 MG PO (07:43)
[2022-08-23] MEDS: tamsulosin 0.4 mg Capsule PO (07:45)
[2022-08-23] MEDS: amoxicillin-clav 875-125 mg Tablet 1 TAB PO ×2 (07:45→16:45)
[2022-08-23] MEDS: aspirin 81 mg EC Tablet PO (07:45)
[2022-08-23] MEDS: pantoprazole DR 40 mg Tablet PO (07:45)
[2022-08-23 11:46] LABS: Glucose Point of Care 279 mg/dL (70-110)
[2022-08-23] MEDS: insulin lispro 100 unit/1 mL SUBCUT ×3 (12:44→20:54)
[2022-08-23] MEDS: enoxaparin 40 mg/0.4 mL Syringe SUBCUT (16:46)
[2022-08-23 16:51] LABS: Glucose Point of Care 179 mg/dL (70-110)
--- NOTE | 2022-08-23 19:08 | P.PN_ITS ---
Subjective Subjective: Patient was seen and examined this morning, denied any active complaints, afebrile, good urine output Medications: Medication Review Details: Generic Name Dose Route Start Last Admin Trade Name Elio PRN Reason Stop Dose Admin Amoxicillin/Clavul anate Potassium 1 tab 08/23/22 09:00 08/23/22 16:45 Amoxicillin-Clav 875-125 Mg Tablet PO 1 tab BID CHARLENE Administration Protocol Aspirin 81 mg 08/20/22 09:00 08/23/22 07:45 Aspirin 81 Mg Ec Tablet PO 81 mg DAILY CHARLENE Administration Citalopram Hydrobr omide 10 mg 08/20/22 09:00 08/23/22 07:43 Citalopram 20 Mg Tablet PO 10 mg DAILY CHARLENE Administration Enoxaparin Sodium 40 mg 08/19/22 18:45 08/23/22 16:46 Enoxaparin 40 Mg /0.4 Ml Syringe SUBCUT 40 mg Q24H CHARLENE Administration Insulin Human Lisp ro 0 unit 08/19/22 21:00 08/23/22 17:29 Insulin Lispro 1 00 Unit/1 Ml SUBCUT 4 unit WM&BEDTIME CHARLENE Administration Protocol Pantoprazole Sodiu m 40 mg 08/20/22 09:00 08/23/22 07:[address] 40 Mg Tablet PO 40 mg DAILY CHARLENE Administration Tamsulosin HCl 0.4 mg 08/20/22 09:00 08/23/22 07:45 Tamsulosin 0.4 M g Capsule PO 0.4 mg DAILY CHARLENE Administration Vitals/I&O/Wt Last Vital Signs Temp 97.8 F 08/23/22 16:00 Pulse 64 08/23/22 16:00 Resp 18 08/23/22 16:00 BP 138/58 08/23/22 16:00 Pulse Ox 97 08/23/22 16:00 O2 Del Method 08/23/22 16:00 O2 Flow Rate 3 08/21/22 19:26 08/23/22 08/23/22 08/23/22 06:59 14:59 22:59 Intake Total 720 / 720 240 / 960 Output Total 1750 / 3450 600 / 600 Balance -1750 / -2800 120 / 120 240 / 360 Physical Exam Const: COMMON NORMALS: patient oriented x3 HENMT: COMMON NORMALS: normocephalic and atraumatic HEAD & SCALP: normocephalic and atraumatic Resp: COMMON NORMALS: clear to auscultation bilaterally AUSCULTATION: clear to auscultation bilaterally Cardio: COMMON NORMALS: regular rate, regular rhythm, S1 normal heart sound present, S2 normal heart sound present, No gallops present (Cardio), No murmurs present (Cardio), No rub (Cardio) and Peripheral pulses 2+ throughout RATE: regular rate RHYTHM: regular rhythm HEART SOUNDS: S1 normal heart sound present and S2 normal heart sound present PERIPHERAL PULSES: Peripheral pulses 2+ throughout GI: COMMON NORMALS: Normal to inspection, nondistended, normoactive bowel sounds present, Soft to palpation, non-tender, No hepatosplenomegaly present and no masses AUSCULTATION: Yes normoactive bowel sounds PALPATION: Yes Soft to palpation and Yes No hepatosplenomegaly present RECTAL EXAM: Yes deferred Extremity: COMMON NORMALS: no clubbing, cyanosis or edema and no pedal edema Neuro: COMMON NORMALS: patient oriented x3 Data 08/22/22 03:39 08/22/22 03:39 Micro: Microbiology 08/19/22 13:18 Urine Culture - Final Urine,Clean Catch Enterococcus faecalis A&P Assessment and plan (1) Sepsis: (2) UTI (urinary tract infection): (3) Urinary obstruction: (4) Lethargy: Plan 87-year-old male recently discharged from [facility], admitted for sepsis with UTI source. Continue inpatient monitoring. Vitals remain stable. He appears more alert and interactive. Blood cultures are negative to date. Urine culture shows E. faecalis pansensitive. Stop meropenem. Start Augmentin per susceptibilities. Stop fluids as he is eating and drinking well. WBC improved. Urine output has been good over the last 24 hours. Blood sugars are improved. Chest x-ray was performed and no acute concerns were noted. CT of his head is without any intracranial acute events. White matter changes were noted. Continue Protonix for GI prophylaxis. Continue sliding scale insulin for diabetes. Code Status: AND IVF: none DVT PPx: Lovenox GI PPx: Protonix ABx: Augmentin Diet: CC Discharge plan: SNF Attestations Medical Necessity Statement*: Currently awaiting placement to custodial. Coding Level of Care Code Acute Code for [facility] Fwd Diagnoses Sepsis A41.9 UTI (urinary tract infection) N39.0 Urinary obstruction N13.9 Lethargy R53.83
[2022-08-23 20:23] LABS: Glucose Point of Care 248 mg/dL (70-110)
--- NOTE | 2022-08-23 21:13 | PC.NURSE ---
No IV present on this patient at the time this nurse received hand off report.
[2022-08-24 04:00] VITALS: BP 135/75; PULSE 66; RESP 17; TEMP 36.6; O2SAT 94
[2022-08-24 05:11] LABS: Basophils # 0.1 10^3/uL (0.0-0.1); Basophils % 0.9 %; Eosinophils # 0.2 10^3/uL (0.0-0.8); Eosinophils % 2.2 %; Hematocrit 39.1 % (42.0-52.0); Hemoglobin 13.2 g/dL (11.7-16.6); Lymphocytes # 2.5 10^3/uL (0.8-4.8); Lymphocytes % 36.1 %; Mean Corpuscular HGB Conc 33.8 g/dL (30.0-36.0); Mean Corpuscular Hemoglobin 31.7 pg (28.0-34.0); Mean Corpuscular Volume 93.8 fl (80-94); Mean Platelet Volume 10.8 fL (7.4-10.4); Monocytes # 0.7 10^3/uL (0.2-0.9); Monocytes % 9.5 %; Neutrophils # 3.46 10^3/uL (1.8-7.7); Neutrophils % 50.7 %; Nucleated Red Blood Cells % 0 %; Platelet Count 238 10^3/cmm (130-400); Red Blood Count 4.17 10^6/uL (4.1-5.3); Red Cell Distribution Width 12.6 % (12.1-15.1); White Blood Count 6.8 10^3/uL (4.0-10.0)
[2022-08-24 05:43] LABS: Alanine Aminotransferase 14 U/L (0-41); Albumin Level 3.5 g/dL (3.5-5.2); Alkaline Phosphatase 59 U/L (40-130); Anion Gap 13.4 (5-19); Aspartate Amino Transferase 11 U/L (0-40); Blood Urea Nitrogen 15 mg/dL (8-23); Carbon Dioxide 27 mmol/L (22-29); Chloride 101 mmol/L (98-107); Globulin 2.7 g/dL (1.3-4.6); Glucose 161 mg/dL (65-115); Osmolality Calculated 288 mOsm/kg (285-295); Potassium 4.4 mmol/L (3.5-5.1); Sodium 137 mmol/L (136-145); Total Bilirubin 0.6 mg/dL (0.15-1.2); Total Protein 6.2 g/dL (6.6-8.7)
[2022-08-24 06:30] LABS: Glucose Point of Care 183 mg/dL (70-110)
[2022-08-24 07:53] VITALS: PULSE 72; O2SAT 95
[2022-08-24 08:00] VITALS: BP 162/75; PULSE 66; RESP 16; TEMP 36.7; O2SAT 96
[2022-08-24] MEDS: tamsulosin 0.4 mg Capsule PO (08:16)
[2022-08-24] MEDS: pantoprazole DR 40 mg Tablet PO (08:16)
[2022-08-24] MEDS: citalopram 20 mg Tablet 10 MG PO (08:16)
[2022-08-24] MEDS: amoxicillin-clav 875-125 mg Tablet 1 TAB PO (08:17)
[2022-08-24] MEDS: insulin lispro 100 unit/1 mL SUBCUT ×2 (08:17→11:58)
[2022-08-24] MEDS: aspirin 81 mg EC Tablet PO (08:17)
[2022-08-24 11:08] LABS: Glucose Point of Care 195 mg/dL (70-110)
[2022-08-24 11:39] VITALS: BP 185/56; PULSE 66; RESP 18; TEMP 36.4; O2SAT 95
[2022-08-24] MEDS: lisinopril 20 mg Tablet PO (12:38)
[2022-08-24 13:03] LABS: SARS Covid-2 Antigen negative (Negative)
--- NOTE | 2022-08-24 13:59 | PC.NURSE ---
Report given to Kathryn Ragland LPN at [facility] via phone.
--- NOTE | 2022-08-25 18:52 | PM.DCS ---
Discharge Providers Date of Admission: 08/19/22 18:41 Date of Discharge: August 25, 2022 Attending Provider at Admission: Leslie Matias MD Attending Provider at Discharge: Luis Dan MD Primary Care Provider: Roberto Carlos Albarran Diagnoses at Discharge Discharge Diagnosis (1) Sepsis: Status: Inactive (2) UTI (urinary tract infection): Status: Inactive (3) Urinary obstruction: Status: Inactive (4) Lethargy: Status: Inactive Reason for Visit Reason for Visit: BLOOD SUGAR/ELEV HEART RATE Hospital Course Hospital Course HPI: Leslie Matias MD Erislexie Dockery is a 87 year old male with a past medical history of diabetes mellitus, hypertension, who was recently admitted at [facility] for urinary tract infection.? I am uncertain as to what antibiotic he received or what the culture results showed at this time.? Per his symptoms at that time had been increasing lethargy to the point that patient had taken a fall at home.? He is intermittently confused.? His is at bedside and states that? patient sleeps a lot at home .? He was discharged to [facility] just last night.? Today at the [facility] patient was found on the floor, not known if he passed out versus took a mechanical fall.? He was sent back into the emergency room.? CT of his head was performed which did not show any signs of intracranial hemorrhage or edema.? Mild small vessel ischemic changes were seen.? His Morales catheter was not draining any urine.? CT abdomen showed bilateral significant hydroureteronephrosis right greater than left without any obstructing calcifications.? Hydronephrosis and hydroureter were likely related to a distended urinary bladder.? Tip of the Morales catheter was noted to be distended in the junction of penile and prostatic urethra.? It was repositioned in the emergency room and is draining well now.? Prostate gland enlargement was seen.. Notable lab abnormalities today are leukocytosis of 24,000, lactate of 4.4, positive UA and hyperglycemia.? At this time patient is lethargic, however able to open his eyes and wake up to calling name.? Correctly tells me his name, date of and that is the lady at the bedside is his .? Correctly identifies her name. Hospital course: Patient was admitted for the management of sepsis secondary to UTI, patient was kept on broad-spectrum antibiotics, urine culture grew: Enterococcus faecalis: During the hospital stay he was on meropenem, he was discharged on, p.o. Augmentin for another 2 weeks, blood culture was negative. During the hospital stay patient was also managed for urinary obstruction: Patient has known prior history of bladder diverticulum as well as BPH, he had an incorrectly Morales placed,CT of the abdomen and pelvis showed that this Morales was misplaced, it was repositioned in the ER, with good urine output. Currently patient has been discharged to the [facility] with Morales catheter in place, he will follow urology as outpatient. Overall patient responded well to above medical management and he was discharged in stable condition To fdc, he will continue to follow-up with his PCP as outpatient. Physical Exam Const: COMMON NORMALS: patient oriented x3 HENMT: COMMON NORMALS: normocephalic and atraumatic HEAD & SCALP: normocephalic and atraumatic Resp: COMMON NORMALS: clear to auscultation bilaterally AUSCULTATION: clear to auscultation bilaterally Cardio: COMMON NORMALS: regular rate, regular rhythm, S1 normal heart sound present, S2 normal heart sound present, No gallops present (Cardio), No murmurs present (Cardio), No rub (Cardio) and Peripheral pulses 2+ throughout RATE: regular rate RHYTHM: regular rhythm HEART SOUNDS: S1 normal heart sound present and S2 normal heart sound present PERIPHERAL PULSES: Peripheral pulses 2+ throughout GI: COMMON NORMALS: Normal to inspection, nondistended, normoactive bowel sounds present, Soft to palpation, non-tender, No hepatosplenomegaly present and no masses AUSCULTATION: Yes normoactive bowel sounds PALPATION: Yes Soft to palpation and Yes No hepatosplenomegaly present RECTAL EXAM: Yes deferred Extremity: COMMON NORMALS: no clubbing, cyanosis or edema and no pedal edema Neuro: COMMON NORMALS: patient oriented x3 Discharge Data Studies Completed and Pending Completed Studies During Hospitalization Category Date Time Status CT abdomen pelvis wo con [id number] Stat Cat Scan 08/19/22 13:[address] head wo con* [id number] Stat Cat Scan 08/19/22 12:23 Completed CXRP [XR chest 1V portable [id number]] Routine Exams 08/19/22 18:49 Completed Radiology Impressions Head CT 08/19/22 12:23 IMPRESSION: 1. No acute intracranial hemorrhage or edema. 2. Moderate atrophy, cerebrum and cerebellum. 3. Mild small vessel ischemic disease. Abdomen/Pelvis CT 08/19/22 13:44 IMPRESSION: 1. Bilateral significant hydroureteronephrosis, RIGHT greater than LEFT. No obstructing ureteral calcifications. Favor the hydronephrosis and hydroureter is secondary to an overly distended urinary bladder. Recommend repositioning of the Morales catheter to decompress the bladder. 2. Abnormal positioning of the Morales catheter. The Morales catheter balloon is distended at the junction of the penile and prostatic urethra. Please deflate the Morales balloon and reposition into the urinary bladder for decompression. 3. Bladder diverticula and diffuse bladder wall thickening. Probably due to long-standing outlet obstruction. There is air in the urinary bladder which may be due to cystitis or the attempted Morales catheter placement. 4. Prostate gland enlargement. 5. Prior cholecystectomy. Chest X-Ray 08/19/22 18:49 IMPRESSION: No acute findings Laboratory Results WBC 6.8 10^3/uL (4.0-10.0) 08/24/22 04:54 RBC 4.17 10^6/uL (4.1-5.3) 08/24/22 04:54 Hgb 13.2 g/dL (11.7-16.6) 08/24/22 04:54 Hct 39.1 % (42.0-52.0) L 08/24/22 04:54 MCV 93.8 fl (80-94) 08/24/22 04:54 MCH 31.7 pg (28.0-34.0) 08/24/22 04:54 MCHC 33.8 g/dL (30.0-36.0) 08/24/22 04:54 RDW 12.6 % (12.1-15.1) 08/24/22 04:54 Plt Count 238 10^3/cmm (130-400) 08/24/22 04:54 MPV 10.8 fL (7.4-10.4) H 08/24/22 04:54 Neut % (Auto) 50.7 % 08/24/22 04:54 Lymph % (Auto) 36.1 % 08/24/22 04:54 O'Brien % (Auto) 9.5 % 08/24/22 04:54 Eos % (Auto) 2.2 % 08/24/22 04:54 Baso % (Auto) 0.9 % 08/24/22 04:54 Neut # (Auto) 3.46 10^3/uL (1.8-7.7) 08/24/22 04:54 Lymph # (Auto) 2.5 10^3/uL (0.8-4.8) 08/24/22 04:54 O'Brien # (Auto) 0.7 10^3/uL (0.2-0.9) 08/24/22 04:54 Eos # (Auto) 0.2 10^3/uL (0.0-0.8) 08/24/22 04:54 Baso # (Auto) 0.1 10^3/uL (0.0-0.1) 08/24/22 04:54 Nucleated RBC % (auto) 0 % 08/24/22 04:54 Nucleated RBCs # 0.0 /100WBC 08/24/22 04:54 Sodium 137 mmol/L (136-145) 08/24/22 04:54 Potassium 4.4 mmol/L (3.5-5.1) 08/24/22 04:54 Chloride 101 mmol/L (98-107) 08/24/22 04:54 Carbon Dioxide 27 mmol/L (22-29) 08/24/22 04:54 Anion Gap 13.4 (5-19) 08/24/22 04:54 BUN 15 mg/dL (8-23) 08/24/22 04:54 Creatinine 0.6 mg/dL (0.7-1.2) L 08/24/22 04:54 GFR Calculation Not Reportable 08/24/22 04:54 Glucose 161 mg/dL (65-115) H 08/24/22 04:54 POC Glucose 195 mg/dL (70-110) H 08/24/22 10:59 Calculated Osmolality 288 mOsm/kg (285-295) 08/24/22 04:54 Lactic Acid 1.6 mmol/L (0.5-2.2) 08/20/22 03:03 Lactic Acid (Sepsis) 2.9 mmol/L (0.5-2.2) H 08/19/22 16:15 Calcium 9.0 mg/dL (8.5-10.5) 08/24/22 04:54 Magnesium 1.9 mg/dL (1.7-2.3) 08/20/22 03:03 Total Bilirubin 0.6 mg/dL (0.15-1.2) 08/24/22 04:54 AST 11 U/L (0-40) 08/24/22 04:54 ALT 14 U/L (0-41) 08/24/22 04:54 Alkaline Phosphatase 59 U/L (40-130) 08/24/22 04:54 C-Reactive Protein 27.0 mg/L (0.0-4.9) H 08/22/22 03:39 NT-Pro-B Natriuret Pep 895 pg/mL (0-450) H 08/20/22 03:03 Total Protein 6.2 g/dL (6.6-8.7) L 08/24/22 04:54 Albumin 3.5 g/dL (3.5-5.2) 08/24/22 04:54 Globulin 2.7 g/dL (1.3-4.6) 08/24/22 04:54 TSH 3.11 uIU/mL (0.27-4.20) 08/19/22 13:00 Urine Color Red (Yellow) 08/19/22 13:18 Urine Appearance Cloudy (CLEAR) A 08/19/22 13:18 Urine pH 5 (5-7) 08/19/22 13:18 Ur Specific [place] 1.015 (1.005-1.030) 08/19/22 13:18 Urine Protein 2+ (Negative) H 08/19/22 13:18 Urine Glucose (UA) 4+ (Normal) H 08/19/22 13:18 Urine Ketones Negative (Negative) 08/19/22 13:18 Urine Blood 3+ (Negative) H 08/19/22 13:18 Urine Nitrate Not Reportable 08/19/22 13:18 Urine Bilirubin Not Reportable 08/19/22 13:18 Urine Urobilinogen Not Reportable 08/19/22 13:18 Ur Leukocyte Esterase 2+ (Negative) H 08/19/22 13:18 Urine RBC >100 /hpf (0-2) H 08/19/22 13:18 Urine WBC 10-15 /hpf (0-5) H 08/19/22 13:18 Ur Squamous Epith Cells Rare /hpf (0-5) 08/19/22 13:18 Amorphous Sediment Not Reportable 08/19/22 13:18 Urine Bacteria 1+ /hpf (NONE) H 08/19/22 13:18 Serum Ketones Negative (Negative) 08/19/22 12:26 Coronavirus 229E (PCR) Not detected (NOT DETECT) 08/19/22 19:30 SARS-CoV-2 (PCR) Not detected (NOT DETECT) 08/19/22 19:30 SARS-CoV-2 Ag (Rapid) negative (Negative) 08/24/22 12:36 Vitals Last Vital Signs Temp 97.6 F 08/24/22 11:39 Pulse 66 08/24/22 11:39 Resp 18 08/24/22 11:39 BP 185/56 08/24/22 11:39 Pulse Ox 95 08/24/22 11:39 O2 Del Method Room Air 08/24/22 11:39 O2 Flow Rate 2 08/24/22 08:00 Discharge Plan Discharge Patient Disposition: Xfer SNF Condition: Stable Prescriptions: New amoxicillin-pot clavulanate 875-125 mg Tablet 1 tab PO BID 14 Days Qty: 28 0RF Continued Celexa 10 mg Tablet 10 mg PO DAILY glipizide 10 mg Tablet Extended Release 24hr 10 mg PO DAILY ondansetron HCl 4 mg Tablet 4 mg PO Q4H PRN (Reason: Nausea) aspirin 81 mg Tablet,Delayed Release (Dr/Ec) 81 mg PO DAILY famotidine 20 mg Tablet 20 mg PO BID Milk of Magnesia 400 mg/5 mL Suspension 30 ml PO DAILY PRN (Reason: Constipation) Dulcolax (bisacodyl) 10 mg Suppository 10 mg FL DAILY PRN (Reason: Constipation) lisinopril 10 mg Tablet 10 mg PO DAILY Fleet Enema 19-7 gram/118 mL Enema 118 ml FL DAILY PRN (Reason: Constipation) diclofenac sodium 75 mg Tablet,Delayed Release (Dr/Ec) 75 mg PO BID metformin 750 mg Tablet Extended Release 24 Hr 1,500 mg PO QAM Probiotic Blend 2 billion cell-50 mg Capsule 1 cap PO DAILY Rx Instructions: give with meal/snack tamsulosin 0.4 mg capsule 0.4 mg PO DAILY Discharge Orders: Discharge Order (Routine); Ordered 08/24/22 Ordered By: Luis Dan Referrals: [facility] [Outside] Roberto Carlos Albarran [Primary Care Provider] - Yvon Castrejon MD [Physician] - 1 week (Dr. Castrejon's office will call with appointment ) Patient Instructions: Amoxicillin/Clavulanate Potassium (By mouth), Morales Catheter Placement and Care (GEN), Opioid Safety Activity Restrictions/Additional Instructions: Please keep morales catheter in place until follow up with Dr. Castrejon's office. Discharge Attestations Time Spent in Discharge Care*: less than 30 min Quality Metrics Clinical Quality Measures [ No reported AMI, CVA or VTE this stay] Coding Level of Care Code Acute Code for Chg Fwd Diagnoses Sepsis A41.9 UTI (urinary tract infection) N39.0 Urinary obstruction N13.9 Lethargy R53.83
== END 2022-08-24 14:35 | disposition skilled nursing facility (03) | DRG 872 ==
LOC: ER 13:45 → ICU 23:18 → MEDSURG 08-21 14:19
PROVIDERS: Family Medicine; Admitting Provider Student in an Organized Health Care Education/Training Program; Emergency Provider Family Medicine; Family Provider Physician Assistant Medical; PCP Physician Assistant Medical; Visit Provider Internal Medicine
DX: A41.9 Sepsis, unspecified organism (principal); N39.0 Urinary tract infection, site not specified; N13.30 Unspecified hydronephrosis; N13.8 Other obstructive and reflux uropathy; B95.2 Enterococcus as the cause of diseases classified elsewhere; W19.XXXA Unspecified fall, initial encounter; T83.021A Displacement of indwelling urethral catheter, initial encounter; Y73.8 Miscellaneous gastroenterology and urology devices associated with adverse incidents, not elsewhere classified; E11.65 Type 2 diabetes mellitus with hyperglycemia; I10 Essential (primary) hypertension; N40.1 Benign prostatic hyperplasia with lower urinary tract symptoms; Z79.84 Long term (current) use of oral hypoglycemic drugs; Z79.82 Long term (current) use of aspirin; I25.10 Atherosclerotic heart disease of native coronary artery without angina pectoris; F03.90 Unspecified dementia, unspecified severity, without behavioral disturbance, psychotic disturbance, mood disturbance, and anxiety; N32.3 Diverticulum of bladder
CPT/HCPCS: 36415; 36416; 70450; 71045; 74176; 80053; 81001; 82009; 82962; 83605; 83735; 83880; 84443; 85025; 85027; 86140; 87040; 87077; 87086; 87186; 87426; 87635; 93005; 96365; 96372; 97116; 97161; 97530; 99285; J1650; J1815; J2185; J7030

== ENCOUNTER → 2022-09-08 15:15 | Outpatient (BNVA) | payer MEDICARE, SELFPAY | PROVIDERS: Family Provider Physician Assistant Medical; PCP Family Medicine; Visit Provider Urology | DX: N40.1 Benign prostatic hyperplasia with lower urinary tract symptoms (principal); R33.8 Other retention of urine; R33.9 Retention of urine, unspecified; N13.8 Other obstructive and reflux uropathy | CPT/HCPCS: 52000; 99214 ==

== ENCOUNTER → 2022-09-16 13:09 | Outpatient (BNVA) | payer MEDICARE, SELFPAY | PROVIDERS: Family Provider Physician Assistant Medical; PCP Family Medicine; Visit Provider Urology | DX: N40.1 Benign prostatic hyperplasia with lower urinary tract symptoms (principal); R33.8 Other retention of urine; N13.8 Other obstructive and reflux uropathy; R31.0 Gross hematuria | CPT/HCPCS: 52000; 99213 ==

== ENCOUNTER → 2022-10-20 13:52 | Outpatient (BNVA) | payer MEDICARE, SELFPAY | PROVIDERS: Family Provider Physician Assistant Medical; PCP Family Medicine; Visit Provider Urology | DX: N40.1 Benign prostatic hyperplasia with lower urinary tract symptoms; N13.8 Other obstructive and reflux uropathy; R33.8 Other retention of urine | CPT/HCPCS: 51702; 51741; 51798; 99213 ==